=== PATIENT | male | born 1945 | race Two or more races ===

== ENCOUNTER → 2017-09-18 | Outpatient (CLI) | payer MEDICARE, OTHER ==
[~2017-09-18] MED LIST: ALL300 PO; ALLO100T70 PO; AMLO-109 PO; AMO500 PO; ASPI-870 PO; ATOR-1 PO; ATOR40TA69 PO; AZAT50TA25 PO; BLOO-1337 MC; BLOOD PRESSURE PILL; CARV12.578 PO; CARV25TA78 PO; CHOL10005 PO; CIPR-214 PO; CYAN100088 PO; DICY10CA11 PO; FAMO20TA28 PO; FERR325C2 PO; FLU45SYR17 IM; FLU45SYR25 IM ONLY; HYDR-385 PO; LANC-1120 MC; LEV75 PO; LEVO25TA57 PO; LEVO50TA86 PO; LISI-353 PO; LISI20TA29 PO; METF-421 PO; METFORMIN PO; METH4TAB66 PO; NIT4 SL; NO CURRENT MEDS; OMEP-125 PO; PANT40TA65 PO; PNEU0.5D3 IM; PRAM0.2520 PO; PRAM0.5T27 PO; PRE5 PO; PROB500T31 PO; TICA90TA PO
[2017-09-18 07:55] LABS: PLATELET COUNT, AUTOMATED 224 K/uL (150-450)
--- NOTE | 2017-09-18 08:43 | RADIOLOGY IMAGING REPORT ---
FACILITY: [facility] [place] PATIENT NAME: Jerzy Miles : 1945 MR: [id number] V: [id number] EXAM DATE: ORDERING PHYSICIAN: SHUN HAMILTON TECHNOLOGIST: [place] [facility] [place] Jerzy [place] : 1945 Visit/Account:[id number] Date of Sevice: 09/18/2017 ELBOW 3 VIEWS RIGHT Indication: Elbow pain and swelling. Comparison: None Available Findings: 3 views of the right elbow are obtained. No acute fracture or dislocation is identified. There is no joint effusion. Small ossifications are s een along the lateral epicondyle compatible with prior extensor tendinopathy/lateral epicondylitis. C orrelate clinically. On the lateral view, there is soft tissue swelling overlying the olecranon. Punc bobo densities are seen in the soft tissues in this location which could represent calcifications in the setting of gout. Correlate clinically. No erosive changes of the olecranon. IMPRESSION: 1. Soft tissue swelling overlying the olecranon process at the right elbow with punctate densities w ithin the soft tissues in this location. Differential would favor olecranon bursitis and gout. Correl ate clinically. 2. Chronic changes along the lateral epicondyle of the distal humerus as above. Report Dictated By: Luis A Styles at 09/18/2017 8:36 AM Report E-Signed By: Luis A Styles at 09/18/2017 8:40 AM WSN:[id number]
[2017-09-18 08:46] LABS: LDL CHOLESTEROL 20 mg/dl
== END ==
LOC: RAD 07:40
PROVIDERS: ATTEND Internal Medicine
DX: E78.00 Pure hypercholesterolemia, unspecified (principal); I25.10 Atherosclerotic heart disease of native coronary artery without angina pectoris; E11.9 Type 2 diabetes mellitus without complications; E03.9 Hypothyroidism, unspecified; I10 Essential (primary) hypertension; K75.4 Autoimmune hepatitis; R10.9 Unspecified abdominal pain; M25.421 Effusion, right elbow
CPT/HCPCS: 36415; 81001; 82040; 82247; 82310; 82374; 82435; 82465; 82565; 82947; 83718; 84075; 84132; 84155; 84295; 84443; 84450; 84460; 84478; 84520; 84550; 85025; 85651; 86140

== ENCOUNTER → 2017-10-07 | Outpatient (CLI) | payer MEDICARE, OTHER | LOC: LAB 08:57 | PROVIDERS: ATTEND Internal Medicine | DX: E11.9 Type 2 diabetes mellitus without complications (principal) | CPT/HCPCS: 36415; 83036 ==

== ENCOUNTER → 2017-10-09 | Outpatient (CLI) | payer MEDICARE, OTHER ==
[2017-10-09 09:36] LABS: INR 1.07
== END ==
LOC: LAB 09:13
PROVIDERS: ATTEND Anesthesiology
DX: Z01.812 Encounter for preprocedural laboratory examination (principal); E11.9 Type 2 diabetes mellitus without complications; M71.521 Other bursitis, not elsewhere classified, right elbow; B94.8 Sequelae of other specified infectious and parasitic diseases
CPT/HCPCS: 36415; 83036; 85610

== ENCOUNTER → 2017-10-16 | Outpatient (REF) | payer MEDICARE, OTHER | LOC: ZZSENDIN 12:00 | PROVIDERS: ATTEND Orthopaedic Surgery Hand Surgery | DX: M10.9 Gout, unspecified (principal) | CPT/HCPCS: 88304 ==

== ENCOUNTER → 2017-12-17 | Outpatient (CLI) | payer MEDICARE, OTHER ==
[~2017-12-17] MED LIST changes: +ATOR20TA65 PO; +FLU180SY11 IM; -METF-421 PO; +METF-452 PO
[2017-12-17 11:47] LABS: PLATELET COUNT, AUTOMATED 240 K/uL (150-450)
== END ==
LOC: LAB 11:27
PROVIDERS: ATTEND Internal Medicine
DX: M54.9 Dorsalgia, unspecified (principal); K75.4 Autoimmune hepatitis; I25.10 Atherosclerotic heart disease of native coronary artery without angina pectoris; M10.9 Gout, unspecified; R31.9 Hematuria, unspecified; E78.00 Pure hypercholesterolemia, unspecified; I10 Essential (primary) hypertension; E03.9 Hypothyroidism, unspecified; E11.9 Type 2 diabetes mellitus without complications
CPT/HCPCS: 36415; 81001; 83036; 84443; 84550; 85025; G0103; 82040; 82247; 82310; 82374; 82435; 82465; 82565; 82947; 83718; 84075; 84132; 84153; 84155; 84295; 84450; 84460; 84478; 84520

== ENCOUNTER → 2017-12-25 | Outpatient (CLI) | payer MEDICARE, OTHER ==
--- NOTE | 2017-12-25 10:00 | RADIOLOGY IMAGING REPORT ---
FACILITY: [facility] PATIENT NAME: Jerzy Miles : 1945 MR: [id number] V: [id number] EXAM DATE: ORDERING PHYSICIAN: SHUN HAMILTON TECHNOLOGIST: [place] [facility] [place]zy [place] : 1945 Visit/Account:[id number] Date of Sevice: 12/25/2017 EXAMINATION: Abdominal ultrasound complete HISTORY: Right flank pain x1 month, autoimmune hepatitis COMPARISON: Abdomen ultrasound April 03, 2015 FINDINGS: Gallbladder: No stones, wall thickening, pericholecystic fluid or sonographic Sands sign. Liver: There is a coarse echogenic texture to the liver although discrete mass is not seen. This may be related to an infiltrative process or fatty infiltration Common duct: Normal measuring 3.7 mm. Pancreas: Pancreas is incompletely imaged due to overlying bowel gas Spleen: Normal in size and echogenicity measuring nine cm in length. Kidneys: Normal in size and echogenicity, the right measures 10.1 cm in length, and the left 11.3 cm . There is a 1 cm cyst inferior lateral left kidney No hydronephrosis. Upper abdominal aorta and IVC: Negative. Ascites: None. IMPRESSION: There is a coarse echogenic texture throughout the liver although no discrete mass seen. This may be related fatty infiltration or other infiltrative process 1 cm left renal cyst Report Dictated By: Omayra Kim MD at 12/25/2017 9:53 AM Report E-Signed By: Omayra Kim MD at 12/25/2017 9:56 AM WSN:[id number]
== END ==
LOC: US 02:53
PROVIDERS: ATTEND Internal Medicine
DX: K76.0 Fatty (change of) liver, not elsewhere classified (principal); N28.1 Cyst of kidney, acquired
CPT/HCPCS: 76700

== ENCOUNTER → 2018-05-31 | Outpatient (CLI) | payer MEDICARE, OTHER ==
[2018-05-31 09:59] LABS: PLATELET COUNT, AUTOMATED 227 K/uL (150-450)
== END ==
LOC: LAB 09:30
PROVIDERS: ATTEND Internal Medicine
DX: E11.9 Type 2 diabetes mellitus without complications (principal); E03.9 Hypothyroidism, unspecified; I10 Essential (primary) hypertension; E78.00 Pure hypercholesterolemia, unspecified; R31.9 Hematuria, unspecified; M10.9 Gout, unspecified; I25.10 Atherosclerotic heart disease of native coronary artery without angina pectoris; K75.4 Autoimmune hepatitis; D64.9 Anemia, unspecified
CPT/HCPCS: 36415; 81001; 82040; 82043; 82247; 82274; 82310; 82374; 82435; 82465; 82565; 82607; 82728; 82746; 82947; 83036; 83540; 83550; 83718; 84075; 84132; 84155; 84295; 84439; 84443; 84450; 84460; 84478; 84520; 84550; 85025

== ENCOUNTER → 2018-06-10 | Outpatient (CLI) | payer MEDICARE, OTHER ==
--- NOTE | 2018-06-11 10:16 | EKG ---
FACILITY: [facility] PATIENT NAME: ARLENE RAND : [id number] MR: [id number] V: [id number] EXAM DATE: ORDERING PHYSICIAN: SHUN HAMILTON TECHNOLOGIST: SHARON Test Reason : EKG PREOP Blood Pressure : / mmHG Vent. Rate : 067 BPM Atrial Rate : 067 BPM P-R Int : 150 ms QRS Dur : 072 ms QT Int : 396 ms P-R-T Axes : 019 021 034 degrees QTc Int : 418 ms Normal sinus rhythm Normal ECG When compared with ECG of 16-JAN-2017 09:49, No significant change was found Confirmed by Chirag Saldivar ([id number]) on 06/11/2018 6:18:34 PM Referred By: SORAYA Confirmed By:Chirag Figueroa
== END ==
LOC: RAD 14:30
PROVIDERS: ATTEND Surgery
DX: Z02.9 Encounter for administrative examinations, unspecified (principal)

== ENCOUNTER 2018-07-13 00:01 | Day surgery (SDC) | payer MEDICARE, OTHER ==
[~2018-07-13] VITALS: Ht 160 cm; Wt 84.8 kg
[2018-07-13 06:27] VITALS: BP 160/101
[2018-07-13] MEDS ORDERED: NORMOSOL R SOLN(*) 1000 ML BAG 1,000 ML IV PRN (06:30)
[2018-07-13] MEDS ORDERED: LIDOCAINE/SOD BICARB 8.4% SYR ID ONE (06:30)
[2018-07-13] MEDS ORDERED: LIDOCAINE MPF 1% 5 ML VIAL ONE (07:15)
[2018-07-13] MEDS ORDERED: PROPOFOL EMUL(*) 10MG/ML 20 ML 40 ML ONE (07:15)
[2018-07-13 07:35] VITALS: BP 132/81
--- NOTE | 2018-07-13 07:43 | Short(Outpt) Discharge Summary ---
Discharge Summary Reason for Hosp/Final Diag: (1) Blood in stool Hospital Course & Plan: pt presented for colonoscopy. he tolerated the procedure well. he will be discharged home when criteria met. Departure Discharge to: Home Discharge Instructions Home Meds Active Scripts Metformin Hcl (METFORMIN HCL) 1,000 Mg Tablet, 1 TAB PO BID, #180 TAB 3 Refills Prov:SHUN HAMILTON MD 07/02/18 Pantoprazole Sodium (PANTOPRAZOLE SODIUM) 40 Mg Tablet.dr, 1 TAB PO QDAY, #90 TAB.SR 3 Refills Prov:SHUN HAMILTON MD 07/02/18 Allopurinol (ALLOPURINOL) 100 Mg Tablet, 200 MG PO QDAY, #180 TAB 1 Refill Prov:SHUN HAMILTON MD 05/28/18 Pramipexole Di-Hcl (MIRAPEX) 0.5 Mg Tablet, 0.5 MG PO QHS PRN for RLS, #90 TAB 3 Refills Prov:SHUN HAMILTON MD 01/07/18 Atorvastatin Calcium (ATORVASTATIN CALCIUM) 20 Mg Tablet, 1 TAB PO QDAY, #90 TAB 1 Refill Prov:SHUN HAMILTON MD 12/17/17 Lisinopril (LISINOPRIL) 20 Mg Tablet, 20 MG PO BID, #180 TAB 3 Refills Prov:SHUN HAMILTON MD 09/17/17 Azathioprine (AZATHIOPRINE) 50 Mg Tablet, 1 TAB PO DAILY, #90 TAB 3 Refills Prov:SHUN HAMILTON MD 07/14/17 Levothyroxine Sodium (LEVOTHYROXINE SODIUM) 50 Mcg Tablet, 50 MCG PO QDAY, #90 TAB 4 Refills Prov:SHUN HAMILTON MD 06/23/17 Lancets (ACCU-CHEK) 1 Each Each, EACH MC QDAY, #100 4 Refills Prov:SHUN HAMILTON MD 09/16/16 Blood-Glucose Meter (ONE TOUCH ULTRA 2) 1 Each Kit, EACH MC QDAY, #100 Prov:SHUN HAMILTON MD 09/15/16 Carvedilol (CARVEDILOL) 25 Mg Tablet, 25 MG PO BID, #60 TAB 11 Refills Prov:SHUN HAMILTON MD 06/25/16 Reported Medications Cholecalciferol (Vitamin D3) (VITAMIN D3) 1,000 Unit Tablet, 1000 UNIT PO QDAY, TAB 06/30/16 Nitroglycerin (NITROSTAT) 0.4 Mg Subl, 1 TAB SL Q5MIN, #25 TAB 1 Refill 02/16/14 Aspirin (Children's Aspirin) 81 Mg Tab.chew, 1 TAB PO DAILY, #100 TAB 4 Refills 02/16/14 Diet: Regular Activity: As Tolerated Special Instructions: repeat colonoscopy 5 yrs DWIGHT MEHTA July 13, 2018 07:43
[2018-07-13 08:00] VITALS: BP 107/85
[2018-07-13 08:16] VITALS: BP 162/93
[2018-07-13 08:19] VITALS: BP 173/112
[2018-07-16] MEDS ORDERED: AZAT50TA25 PO (12:17)
== END 2018-07-13 08:30 | disposition home or self-care (01) ==
LOC: OR 00:01
PROVIDERS: ATTEND Surgery
DX: K57.30 Diverticulosis of large intestine without perforation or abscess without bleeding (principal); E11.9 Type 2 diabetes mellitus without complications
CPT/HCPCS: 00811; 36416; 45378; 82948; J2001; J2704